=== PATIENT | male | born 1955 | race Caucasian/White ===

== ENCOUNTER 2019-08-13 08:09 | Day surgery (SDC) | payer OTHER ==
[~2019-08-13] VITALS: Ht 182.9 cm; Wt 123.0 kg
[~2019-08-13 08:09] MED LIST: ASPIR 8181 MG PO; ATOR20 PO; CARV3.125 PO; ENTRESTO 24 MG1 EACH PO; LISI5 PO; TORSE20 PO; TRAZ100 PO; VITAMIN D32000 UNI3 PO; WARF5 PO; XARELTO20 MG PO
--- NOTE | 2019-08-13 11:05 | NUR ---
PT TO RECOVERY ROOM POST PROCEDURE. PT IS DROWSY, BUT ROUSABLE, ANSWERING QUESTIONS APPROPRIATELY, DENIES PAIN POST PROCEDURE. MONITOR AFLUTTER 60-70'S, B/P 103/56, AFEBRILE, SPO2 99% 4L NC. L GROIN SITE NO SWELLING/HEMATOMA, 6 FR SHEATH REMAINS IN PLACE (ACT 230), TEGADERM DRSG INTACT; LLE PULSES DP 2+ AND PT 1+-UNCHANGED FROM PREASSESSMENT. PT TOOK SOME SIPS OF JUICE WITHOUT PROBLEM.
--- NOTE | 2019-08-13 12:35 | NUR ---
PRE-MEDICATIONS 600MG PLAVIX PO 325MG ASPIRIN PO @ 1230 GIVEN BY THIS NURSE PER PRE ORDERS
--- NOTE | 2019-08-13 13:05 | NUR ---
ACT 158, 6 FR SHEATH REMOVED, MANUAL PRESSURE X 20 MIN, BRADEN AND TEGADERM DRSG PLACED-DRAINAGE MAPPED. L GROIN SITE REMAINS WITHOUT SWELLINIG/HEMATOMA. DR BURGESS IN TO DISCUSS FINDINGS OF PROCEDURE.
--- NOTE | 2019-08-13 16:45 | NUR ---
PT STOOD AT THE BEDSIDE, VOIDED QS, ASSISTED BACK TO BED; SITE UNCHANGED WITH ACTIVITY.
--- NOTE | 2019-08-13 17:25 | NUR ---
PT AMB IN RECOVERY ROOM WITHOUT ISSUE, SITE UNCHANGED.
--- NOTE | 2019-08-13 17:35 | NUR ---
PT DRESSED SELF WITHOUT ISSUE, SITE UNCHANGED-IV REMOVED CANNULA INTACT. PT RECEIVED DISCHARGE INSTRUCTIONS, SITE MANAGEMENT, MED LIST AND AFTER CARE INSTRUCTIONS; VERBALIZED GOOD UNDERSTANDING.
--- NOTE | 2019-08-13 17:46 | NUR ---
PT LEFT FACILITY VIA W/C, CONDITION STABLE. PT IS GOING [place] FOR THE EVENING, DOES NOT HAVE ANYONE TO STAY THE NIGHT WITH HIM; DR BURGESS AWARE.
== END 2019-08-13 17:46 | disposition home or self-care (01) ==
LOC: MHTC 08:09
PROC: B201YZZ Plain Radiography of Multiple Coronary Arteries using Other Contrast (ICD-10-PCS; principal; 2019-08-13)
PROC: 4A023N7 Measurement of Cardiac Sampling and Pressure, Left Heart, Percutaneous Approach (ICD-10-PCS; principal; 2019-08-13)
DX: I25.10 Atherosclerotic heart disease of native coronary artery without angina pectoris (principal); I50.20 Unspecified systolic (congestive) heart failure
CPT/HCPCS: 76937; 85347; 93454; 93571; 99152; 99153; C1769; C1887; C1894; J1644; J2250; J3010; J7030; Q9967

== ENCOUNTER 2020-10-04 06:08 | Day surgery (SDC) | payer OTHER ==
[~2020-10-04] VITALS: Ht 182.9 cm; Wt 286.0 kg
[2020-10-04] MEDS ORDERED: Isosorbide Mono30 MG PO (07:22)
[2020-10-04] MEDS ORDERED: SIMV80 PO (07:23)
[2020-10-04] MEDS ORDERED: SPIR25 PO (07:25)
[2020-10-04] MEDS ORDERED: PANT40 PO (08:02)
[2020-10-04] MEDS ORDERED: PLAVIX75 MG PO (08:02)
--- NOTE | 2020-10-04 08:03 | NUR ---
PT AWAKE AND VERBALIZING WELL.
--- NOTE | 2020-10-04 08:53 | NUR ---
PT VERBALIZED UNDERSTANDING OF WRITTEN AND VERBAL D/C INST. IV REMOVED. PT TAKING PO FLUIDS /S DIFFICULTY. PT TAKEN OUT OF THE HRT CENTER VIA W/C.
== END 2020-10-04 23:03 | disposition home or self-care (01) ==
LOC: MHTC 06:08
DX: G45.9 Transient cerebral ischemic attack, unspecified (principal); I25.10 Atherosclerotic heart disease of native coronary artery without angina pectoris; I48.0 Paroxysmal atrial fibrillation; Z95.2 Presence of prosthetic heart valve; Z88.8 Allergy status to other drugs, medicaments and biological substances; Z79.01 Long term (current) use of anticoagulants; Z79.82 Long term (current) use of aspirin; Z79.899 Other long term (current) drug therapy; I12.9 Hypertensive chronic kidney disease with stage 1 through stage 4 chronic kidney disease, or unspecified chronic kidney disease; N18.9 Chronic kidney disease, unspecified; E78.5 Hyperlipidemia, unspecified
CPT/HCPCS: 93312; 93325; A9270; J2704; J7030

== ENCOUNTER 2020-10-10 15:10 | Inpatient (IN) | payer OTHER ==
[~2020-10-10] VITALS: Ht 182.9 cm; Wt 127.9 kg
[~2020-10-10 15:10] MED LIST changes: +Isosorbide Mono30 MG PO; +PANT40 PO; +PLAVIX75 MG PO; +SIMV80 PO; +SPIR25 PO
[2020-10-10 15:46] LABS: BASOPHILS ABSOLUTE AUTO 0.04 K/mm3 (0.00-0.23); BASOPHILS PERCENT AUTO 0 % (0-2); EOSINOPHILS ABSOLUTE AUTO 0.02 K/mm3 (0.00-0.68); EOSINOPHILS PERCENT AUTO 0 % (0-6); Hematocrit 51.6 % (37.0-53.0); Hemoglobin 17.5 g/dL (13.5-17.5); IMMATURE GRAN ABSOLUTE AUTO 0.31 K/mm3 (0.00-0.10); IMMATURE GRAN PERCENT AUTO 2 % (0-1); LYMPHOCYTES ABSOLUTE AUTO 1.29 K/mm3 (0.84-5.20); LYMPHOCYTES PERCENT AUTO 9 % (21-46); MONOCYTES ABSOLUTE AUTO 1.12 K/mm3 (0.16-1.47); MONOCYTES PERCENT AUTO 8 % (4-13); Mean Corpuscular HGB Conc 33.9 g/dL (31.5-36.5); Mean Corpuscular Volume 89 fL (80-100); Mean Platelet Volume 10.8 fL (9.1-12.4); NEUTROPHILS ABSOLUTE AUTO 12.15 K/mm3 (1.96-9.15); NEUTROPHILS PERCENT AUTO 81 % (41-73); Platelet Count 143 K/mm3 (150-400); RDW Coefficient Variation 14.7 % (11.7-14.2); RDW Standard Deviation 46.5 fL (35.1-46.3); Red Blood Cell Count 5.83 M/mm3 (4.30-5.90); White Blood Cell Count 14.93 K/mm3 (4.00-11.30)
[2020-10-10 16:08] LABS: Albumin, Blood 3.8 g/dL (3.4-5.0); Albumin/Globulin Ratio 0.8 (0.8-1.8); Bilirubin, Total 1.4 mg/dL (0.1-1.0); Bun/Creatinine Ratio 17.6 (12.0-20.0); Calcium, Blood 9.8 mg/dL (8.5-10.1); Creatinine, Blood 1.48 mg/dL (0.60-1.20); Globulin, Blood 4.6 g/dL (2.2-4.0); Potassium, Blood 4.4 mmol/L (3.5-5.5); Total Protein, Blood 8.4 g/dL (6.4-8.2)
[2020-10-10 18:28] LABS: International Normalized Ratio 1.05; Prothrombin Time Results 11.3 Sec (9.7-11.5)
[2020-10-11 03:48] LABS: Hematocrit 50.2 % (37.0-53.0); Hemoglobin 16.5 g/dL (13.5-17.5); Mean Corpuscular HGB 29.8 pg (26.0-34.0); Mean Corpuscular HGB Conc 32.9 g/dL (31.5-36.5); Mean Corpuscular Volume 91 fL (80-100); Mean Platelet Volume 10.8 fL (9.1-12.4); Platelet Count 126 K/mm3 (150-400); RDW Coefficient Variation 14.8 % (11.7-14.2); RDW Standard Deviation 48.6 fL (35.1-46.3); Red Blood Cell Count 5.54 M/mm3 (4.30-5.90); White Blood Cell Count 10.68 K/mm3 (4.00-11.30)
[2020-10-11 04:04] LABS: Bun/Creatinine Ratio 16.2 (12.0-20.0); Creatinine, Blood 1.48 mg/dL (0.60-1.20); Potassium, Blood 4.1 mmol/L (3.5-5.5)
--- NOTE | 2020-10-11 04:37 | NUR ---
SHIFT SUMMARY RECIEVED REPORT FROM PACO VASQUEZ, PT TO ROOM VIA STRETCHER @2006, 1 PERSON ASSIST TO THE BED. PATIENT IS ALERT AND ORIENTED X4 COOPERATIVE WITH CARE. GRAPHICS EDIT TECHNICIAN STRENGTH EQUAL, BLE STRENGTH EQUAL, FACE SYMMETRICAL. PT DOES HAVE SLURRED SPEECH AND STATES WHEN HE IS HAVING COORDINATION PROBLEMS AND WHEN HE STANDS HE FEEL LIKE HIS RIGHT SIDE IS WEAKER AND HARDER TO COORDINATE. NEURO UNCHANGED THROUGHOUT THE SHIFT. 02 SATS 93% ON RA. PT STATES HE HAS CPAP AT HOME BUT IS NON-COMPLIANT AND DOES NOT WANT TO WEAR IT. PATIENT SLEPT MOST THE NIGHT. VSS, NO ACUTE CHANGES. CALL LIGHT IN REACH.
--- NOTE | 2020-10-11 17:44 | NUR ---
SHIFT SUMMARY PT HAS BEEN PLEASANT & COOPERATIVE T/O SHIFT. UP IN CHAIR MOST OF SHIFT. NUERO CHECK'S UNCHANGED T/O SHIFT. WORKED W/ PT&OT. DENIES PAIN. EATING, DRINKING, VOIDING WELL.
--- NOTE | 2020-10-11 18:30 | NUR ---
PT TO MEDICAL FLOOR, BELONGINGS W/ PT.
--- NOTE | 2020-10-11 18:57 | NUR ---
PT ARRIVED TO ROOM 330 VIA W/C. WILL GIVE REPORT TO ONCOMING SHIFT.
[2020-10-12 06:37] LABS: Hematocrit 49.2 % (37.0-53.0); Hemoglobin 16.3 g/dL (13.5-17.5); Mean Corpuscular HGB 30.2 pg (26.0-34.0); Mean Corpuscular HGB Conc 33.1 g/dL (31.5-36.5); Mean Corpuscular Volume 91 fL (80-100); Mean Platelet Volume 10.8 fL (9.1-12.4); Platelet Count 115 K/mm3 (150-400); RDW Coefficient Variation 14.6 % (11.7-14.2); RDW Standard Deviation 48.1 fL (35.1-46.3); White Blood Cell Count 7.28 K/mm3 (4.00-11.30)
--- NOTE | 2020-10-12 06:48 | NUR ---
SEE PAPER PROGRESS NOTE FOR SHIFT SUMMARY
[2020-10-12 07:10] LABS: Bun/Creatinine Ratio 18.4 (12.0-20.0); Calcium, Blood 8.6 mg/dL (8.5-10.1); Creatinine, Blood 1.41 mg/dL (0.60-1.20); Potassium, Blood 4.1 mmol/L (3.5-5.5)
--- NOTE | 2020-10-12 13:31 | NUR ---
Echocardiogram using 9.0ml of agitated saline contrast and 0.60ml of Definity contrast performed.
[2020-10-12] MEDS ORDERED: ASPI81CH PO (14:25)
[2020-10-12] MEDS ORDERED: ATOR10 PO (14:25)
[2020-10-12] MEDS ORDERED: ENTRESTO 97 MG1 EACH PO (14:26)
[2020-10-12] MEDS ORDERED: METO25ER PO (14:26)
--- NOTE | 2020-10-12 16:10 | NUR ---
SHIFT SUMMARY PT WATCHING TV MOST OF DAY. CONTINUES TO SLUR WORDS AND AT TIMES TROUBLE WORD FINDING. ECHO COMPLETED TODAY. 1 PERSON ASSIST WITH AMBULATION. REPORTS BALANCE IMPROVING BUT STILL AN ISSUE. NO SWALLOWING CONCERNS. MED LIST CLARIFIED AND MD NOTIFIED.
--- NOTE | 2020-10-13 00:49 | NUR ---
ALERTED OF RECENT 7 BEAT RUN OF V.TACH W/PT REMAINING ASYMPTOMATIC OF CARDIAC DISTRESS AND VSS. NEW ORDERS RECIEVED FOR POTASSIUM AND MAG LEVELS IN AM. WCTM CLOSELY AND REPORT ANY CHANGES/WORSENING.
--- NOTE | 2020-10-13 05:26 | NUR ---
SUMMARY: PT A/OX4, CALLS APPROPRIATELY AND IS PLEASANT AND COOPERATIVE W/CARE. NEURO OBS STABLE AND DEFICITS CONT TO IMPROVE. HE REPORTS GAIT/COORDINATION IS BETTER AND IS UP INDEPENDENT W/FWW TO TOILET NOW. SPEECH CONT'S SLURRED AND GARBLED AT TIMES BUT THIS IS UNCHANGED FROM ONSET AND PT TO F/U W/SPEECH TX OUTPT. HE BEGAN SHIFT NSR W/1ST DEGREE BLOCK AT 90'S BPM BUT HAD A COUPLE EPISODES OF ECTOPIES REPORTED BY TELE TECHS THIS SHIFT. HE HAD A 7 BEAT RUN OF VTACH THEN RETURNED TO [facility], AWARE AND NEW ORDERS RECEIVED FOR MAG/POTASSIUM LEVELS THIS AM, LABS PENDING. HE ALSO BECAME TACHY W/HR UP TO 140'S W/EXERTION TO USE RESTROOM X1. HE RECOVERED AT REST AND REMAINED ASYMPTOMATIC OF CARDIAC DISTRESS DURING BOTH EPISODES. PT IS POSSIBLE D/C THIS AM W/HOME HEALTH. NO ACUTE CHANGES, VSS/AFEBRILE. WCTM AND REPORT TO DAY RN.
[2020-10-13 06:19] LABS: Magnesium, Blood 2.2 mg/dL (1.6-2.4); Potassium, Blood 4.1 mmol/L (3.5-5.5)
--- NOTE | 2020-10-13 19:43 | NUR ---
SHIFT SUMMARY: NO ACUTE EVENTS. NO EVENTS ON TELEMETRY, SR WITH PAC'S AND PVC'S IN THE 90'S. NEURO EXAM STABLE; POOR BALANCE, L HAND SLIGHTLY WEAKER THAN RIGHT, SPEECH SLURRED, SWALLOWS OK. ON HEPARIN GTT AT 15 UNITS/KG/HR BASED ON 98 KG WEIGHT, NO S/S BLEEDING NOTED. DENIES PAIN. DANGLES INDEPENDENTLY AT BEDSIDE, USES FWW AND GAIT BELT FOR AMBULATION. WORKED WITH PT/OT TODAY. HAS A FRIEND ALTAF HELPING HIM WITH HIS ANIMALS AND BILL PAYING WHILE HOSPITALIZED, BUT THIS IS STILL A SOURCE OF WORRY FOR HIM.
--- NOTE | 2020-10-13 20:23 | NUR ---
APRIL HELD PT INFORMED ME THAT THE HOSPITALIST MEANT TO DC XARELTO FOR NOW WHILE HE IS ON HEPARIN DRIP. I DID NOTE MENTION OF THIS INTENTION IN THE PHYSICIANS REPORT. APRIL IS HELD THIS SHIFT.
--- NOTE | 2020-10-14 04:05 | NUR ---
SHIFT SUMMARY ADMITEED FOR CEREBELLAR CVA. FULL CODE. APICAL THROMBUS FOUND. HEPARIN DRIP IN PLACE, RATE ADJUSTED ONCE THIS SHIFT. PLAN IS TO REDO ECHO IN 2 DAYS, THEN HOME W/HH. PT LIVES ALONE IN [place], BUT HAS A FRIEND HELPING HIM. NEURO CHECKS SHOW THE RIGHT SIDED WEAKNESS IN THE HANDS. PT STATES HE IS "WOBBLY ON MY FEET". HIS SPEECH IS SLURRED BUT HE IS UNDERSTANDABLE. TELEMETRY: NSR W/PVC'S @ 89 BPM, HE DID DIP DOWN INTO THE 50'S BPM BRIEFLY, BUT AVERAGED IN THE 90 BPM RANGE. I DID HOLD THE XARELTO TONIGHT, SEE PREVIOUS NOTE. FOLLOWING PTT LABS.
[2020-10-14 13:16] LABS: Mean Platelet Volume 10.9 fL (9.1-12.4); Platelet Count 157 K/mm3 (150-400)
--- NOTE | 2020-10-14 19:38 | NUR ---
SHIFT SUMMARY: NO ACUTE EVENTS. NO EVENTS ON TELEMETRY. DENIES PAIN. GETTING UP TO BR WITH 1 PERSON AND FWW, GAIT IS STILL UNSTEADY. SPEECH THERAPY CAME BY TO WORK ON SPEECH, GAVE VOCAL EXERCISES. HEPARIN GTT AT 17.5 UNITS/KG/HR (34.3 ML/HR), NO S/S OF BLEEDING. NO CHANGES IN NEURO EXAM. PT/OT ALSO WORKING WITH PATIENT. HAD VISIT FROM HIS FRIEND ALTAF TODAY, IS EAGER TO GO HOME.
[2020-10-15 02:38] LABS: Hematocrit 48.5 % (37.0-53.0); Hemoglobin 16.5 g/dL (13.5-17.5); Mean Corpuscular HGB 30.2 pg (26.0-34.0); Mean Corpuscular Volume 89 fL (80-100); Mean Platelet Volume 10.9 fL (9.1-12.4); Platelet Count 140 K/mm3 (150-400); RDW Coefficient Variation 14.3 % (11.7-14.2); RDW Standard Deviation 45.4 fL (35.1-46.3); Red Blood Cell Count 5.47 M/mm3 (4.30-5.90); White Blood Cell Count 9.09 K/mm3 (4.00-11.30)
[2020-10-15 02:52] LABS: Bun/Creatinine Ratio 17.1 (12.0-20.0); Calcium, Blood 8.9 mg/dL (8.5-10.1); Creatinine, Blood 1.7 mg/dL (0.60-1.20); Potassium, Blood 3.9 mmol/L (3.5-5.5)
--- NOTE | 2020-10-15 03:53 | NUR ---
SHIFT SUMMARY ADMITTED FOR CVA. FULL CODE. RIGHT SIDED WEAKNESS. PLAN IS FOR 2 DAYS HEPARIN DRIP, THEN CHECK APICAL THROMBUS W/REPEAT ECHO. ON DC IT WILL BE W/HH & RESTART XARELTO. HEPARIN INFUSING ORDERED. PTT IS AT GOAL AT 60.1. TELEMETRY: NSR W/1ST DEG BLOCK @ 90 BPM. RT HAND SEEMS STRONGER THIS SHIFT
--- NOTE | 2020-10-15 17:42 | NUR ---
PATIENT IS ALERT AND ORIENTED AND COOPERATIVE WITH CARE. WORKED WITH ST TODAY, ST WANTS THE PATIENT TO WORK ON SPEAKING SLOWLY AND ENUNCIATE. WORKED WITH PT AND OT TODAY. HEPARRIN DRIP IS RUNNING. CT SCAN IS ORDERED. PATIENT CALLS APPROPRIATELY. NO C/O PAIN. WILL CONTINUE TO MONITOR
--- NOTE | 2020-10-15 20:00 | NUR ---
IV RAC 20G WITH HEPARIN GTT RUNNING, IV SITE IS WNL AND INFUSING WELL.
--- NOTE | 2020-10-16 00:05 | NUR ---
10/15/201958 PT SITTING UP IN BED, DENIES ANY DISCOMFORT AT THIS TIME. TELE 1ST DEGREE BLOCK. NO OTHER APPARENT SIGNS OF DISTRESS. CALL LIGHT IS IN REACH.
[2020-10-16 00:24] LABS: Hemoglobin 16.1 g/dL (13.5-17.5); Mean Corpuscular HGB 29.9 pg (26.0-34.0); Mean Corpuscular HGB Conc 32.9 g/dL (31.5-36.5); Mean Corpuscular Volume 91 fL (80-100); Mean Platelet Volume 10.8 fL (9.1-12.4); Platelet Count 143 K/mm3 (150-400); RDW Coefficient Variation 14.4 % (11.7-14.2); RDW Standard Deviation 47.3 fL (35.1-46.3); Red Blood Cell Count 5.39 M/mm3 (4.30-5.90); White Blood Cell Count 8.38 K/mm3 (4.00-11.30)
--- NOTE | 2020-10-16 00:36 | NUR ---
PT LYING IN BED, EYES CLOSED, WAKES EASILY TO VERBAL STIMULI. NO APPARENT SIGNS OF DISTRESS. CALL LIGHT IS IN REACH.
--- NOTE | 2020-10-16 00:36 | NUR ---
10/15/20 2200 PT LYING IN BED, EYES CLOSED, APPEARS TO BE RESTING. BREATHING IS EVEN, UNLABORED. NO APPARENT SIGNS OF DISTRESS. CALL LIGHT IS IN REACH.
[2020-10-16 00:41] LABS: Bun/Creatinine Ratio 16.7 (12.0-20.0); Calcium, Blood 8.6 mg/dL (8.5-10.1); Creatinine, Blood 1.56 mg/dL (0.60-1.20); Potassium, Blood 4.2 mmol/L (3.5-5.5)
--- NOTE | 2020-10-16 03:00 | NUR ---
0200 PT LYING IN BED EYES CLOSED, APPEARS TO BE RESTING. BREATHING IS EVEN, UNLABORED. NO APPARENT SIGNS OF DISTRESS. CALL LIGHT IS IN REACH.
--- NOTE | 2020-10-16 05:02 | NUR ---
0400 PT LYING IN BED, EYES CLOSED, WAKES EASILY TO VERBAL STIMULI. NO APPARENT SIGNS OF DISTRESS. CALL LIGHT IS IN REACH.
--- NOTE | 2020-10-16 05:03 | NUR ---
PT IS AAO X 4, ON RA. DENIED ANY DISCOMFORT FOR THIS SHIFT. PT HAS SLIGHTLY SLURRED SPEECH AND IS APHASIC AT TIMES. PT HAD EPISODE OF AFLUTTER AND EPISODE OF SB. BOTH WERE VERY SHORT INTERVALS WITH PT BEING ASYMPTOMATIC. TELE SHOWS 1ST DEGREE BLOCK.
--- NOTE | 2020-10-16 05:05 | NUR ---
PT LYING IN BED, EYES CLOSED, APPEARS TO BE RESTING. BREATHING IS EVEN, UNLABORED. NO APPARENT SIGNS OF DISTRESS. CALL LIGHT IS IN REACH. NO OTHER CHANGES THIS SHIFT.
--- NOTE | 2020-10-17 05:00 | NUR ---
RADIO ADJUSTER NOTIFIED RN OF POSSIBLE V.TACH VS ABERRANT BEATS AT 63 BPM THEN SPONTANEOUS RETURN TO A.FLUTTER AT 73 BPM. ALERTED AND LABS RX'D THIS AM: CBC, CMP, BNP. PT ASYMPTOMATIC OF DISTRESS, SLEEPING AT THE TIME AND AWOKE TO DENY ALL CARDIAC COMPLAINTS. VSS/AFEBRILE. WCTM CLOSELY FOR CHANGES.
--- NOTE | 2020-10-17 05:17 | NUR ---
SUMMARY: PT A/OX4, CALLS APPROPRIATELY TO SPECIFY NEEDS AND IS PLEASANT AND COOPERATIVE W/CARE. HE CONT'S TO REPORT MILD DIZZINESS, SOB AND BALANACE ISSUES W/AMBULATION BUT NO CHANGES/WORSENING TO NEURO OBS. PT C/O PERISTANT SLURRED SPEECH AND SLIGHT WEAKNESS TO R.HAND BUT STRENGTH CONT'S TO IMPROVE. HE'S UP W/FWW TO TOILET AND IS AWARE OF LIMITATIONS. HE'S BEEN AFLUTTER ON TELEMETRY THIS SHIFT BUT HAD X1 POSS EPISODE V.TACH VS ABBERANT BEATS. PT WAS ASYMPTOMATIC OF CARDIAC DISTRESS, SLEPT T/O EVENT AND VITALS REMAINED STABLE. MADE AWARE W/AM LABS RX'D, STILL PENDING AT THIS TIME. HE'S ON XARELTO FOR APICAL THROMBUS AND CONT'S W/O S/S BLEEDING. NO ACUTE CHANGES, VSS/AFEBRILE. PT HYPOTENSIVE AT TIMES W/O S/S DISTRESS. WCTM/REPORT TO DAY RN.
[2020-10-17 05:53] LABS: BASOPHILS ABSOLUTE AUTO 0.07 K/mm3 (0.00-0.23); BASOPHILS PERCENT AUTO 1 % (0-2); EOSINOPHILS ABSOLUTE AUTO 0.17 K/mm3 (0.00-0.68); EOSINOPHILS PERCENT AUTO 2 % (0-6); Hematocrit 50.6 % (37.0-53.0); Hemoglobin 17.1 g/dL (13.5-17.5); IMMATURE GRAN ABSOLUTE AUTO 0.22 K/mm3 (0.00-0.10); IMMATURE GRAN PERCENT AUTO 3 % (0-1); LYMPHOCYTES ABSOLUTE AUTO 1.45 K/mm3 (0.84-5.20); LYMPHOCYTES PERCENT AUTO 18 % (21-46); MONOCYTES ABSOLUTE AUTO 0.85 K/mm3 (0.16-1.47); MONOCYTES PERCENT AUTO 11 % (4-13); Mean Corpuscular HGB 30.3 pg (26.0-34.0); Mean Corpuscular HGB Conc 33.8 g/dL (31.5-36.5); Mean Corpuscular Volume 90 fL (80-100); Mean Platelet Volume 10.5 fL (9.1-12.4); NEUTROPHILS PERCENT AUTO 65 % (41-73); Platelet Count 148 K/mm3 (150-400); RDW Coefficient Variation 14.4 % (11.7-14.2); RDW Standard Deviation 46.5 fL (35.1-46.3); Red Blood Cell Count 5.64 M/mm3 (4.30-5.90); White Blood Cell Count 7.96 K/mm3 (4.00-11.30)
[2020-10-17 06:15] LABS: Albumin, Blood 3.4 g/dL (3.4-5.0); Albumin/Globulin Ratio 0.8 (0.8-1.8); Bilirubin, Total 1.3 mg/dL (0.1-1.0); Bun/Creatinine Ratio 18.6 (12.0-20.0); Calcium, Blood 8.9 mg/dL (8.5-10.1); Creatinine, Blood 1.56 mg/dL (0.60-1.20); Globulin, Blood 4.4 g/dL (2.2-4.0); Potassium, Blood 4.2 mmol/L (3.5-5.5); Total Protein, Blood 7.8 g/dL (6.4-8.2)
--- NOTE | 2020-10-17 17:45 | NUR ---
SHIFT SUMMARY PT AXO, PLEASANT AND COOPERATIVE WITH CARE. VSS THOUGH LOW BP OF 97/61 NOTED AT 1456. NO ACUTE CHANGES THIS SHIFT. PT AMBULATES WITH SBA AND FWW THOUGH REFUSES GB. IV PATENT AND SALINE LOCKED. PT DENIES SOB, PAIN AND NV. THIS NURSE AMBULATED WITH PATIENT IN HALLWAY. PT STATES THAT HE STILL FEELS SLIGHTLY DIZZY BUT OKAY WHILE AMBULATING. BED IN LOW POSITION, CALL LIGHT WITHIN REACH.
--- NOTE | 2020-10-18 04:45 | NUR ---
SHIFT SUMMARY NO ACUTE CHANGES TO REPORT THIS SHIFT. PT HAS RESTED MOST OF THE NIGHT. PT STILL STRUGGLING WITH EXPRESSIVE APHASIA AND SLURRING OF WORDS BUT WHEN GIVEN TIME HE IS ABLE TO COMMUNICATE AND EXPRESS HIS NEEDS. PT A/OX4, NO ACUTE NEURO CHANGES. PLAN AT THIS POINT IS SNF. VITALS ARE STABLE. PT AMBULATES WELL WITH 1 PA AND FWW. BED IN LOWEST POSITION, CALL LIGHT WITHIN REACH.
--- NOTE | 2020-10-18 16:57 | NUR ---
SHIFT SUMMARY PT AxOx4. PLEASANT AND COOPERATIVE WITH CARE. PT WORKED WITH PHYSICAL AND OCCUPATIONAL THERAPY TODAY- 1 ASSIST WITH FWW AND GB. PT ON TELE, RUNNING AFIB AT 96. CURRENT PLAN WAS TO DC TO IRU AT [facility] TODAY. RING SEWER WORKING ON DETAILS. VITALS REVIEWED. PT DENIES ANY NEEDS AT THIS TIME AND CURRENTLY RESTING IN BED WITH CALL LIGHT IN REACH.
--- NOTE | 2020-10-19 04:06 | NUR ---
SHIFT SUMMARY A/O, ABLE TO MAKE NEEDS KNOWN. COOPERATIVE WITH CARE. ANSWERS QUESTIONS APPROPRIATELY. DIFFICULTY FORMING THOUGHTS INTO SENTENCES AT TIMES. NO PAIN/DISCOMFORT. APPEARED TO REST MUCH OF THE NIGHT. UP /c 1P ASSIST /c FWW. TELE RUNNING AFLUTTER @ 60. NO ACUTE CHANGES NOTED OVERNIGHT. BED REMAINS IN LOWEST POSITION. CALL LIGHT AND BELONGINGS WITHIN REACH. CONTINUE WITH CURRENT PLAN OF CARE. REPORT TO ONCOMING RN.
--- NOTE | 2020-10-19 16:48 | NUR ---
PATIENT HAS BEEN PLEASANT AND COOPERATIVE WITH STAFF. VITALS HAVE BEEN STABLE AND WNL. IV FLUIDS STARTED FOR ORTHOSTATIC HYPOTENSION. PATIENT HAS DENIED PAIN AND DISCOMFORT. INDEPENDENT IN ROOM. CALLS APPROPRIATELY FOR STAFF ASSIST NEEDED. CALL LIGHT IS WITHIN REACH.
--- NOTE | 2020-10-19 19:05 | NUR ---
ASSUMED CARE RECEIVED REPORT FROM CHRISTINA MARTÍNEZ. PT RESTING, IN NAD. CHARACTER ACTOR ASSISTING PT TO BATHROOM. NO OTHER ACUTE NEEDS ASSESSED AT THIS TIME. CALL LIGHT, POSSESSIONS IN REACH, BED IN LOW AND LOCKED POSITION.
[2020-10-20 06:07] LABS: Bun/Creatinine Ratio 22.4 (12.0-20.0); Calcium, Blood 8.7 mg/dL (8.5-10.1); Creatinine, Blood 1.52 mg/dL (0.60-1.20); Potassium, Blood 4.2 mmol/L (3.5-5.5)
--- NOTE | 2020-10-20 07:23 | NUR ---
SUPERVISOR FINISHING SUMMARY PT RESTING, IN NAD. APPEARED TO SLEEP WELL T/O NIGHT. NO ACUTE CONCERNS TO REPORT, VS REVIEWED,WNL. NO ACUTE NEEDS ASSESSED AT THIS TIME. CALL LIGHT, POSSESSIONS IN REACH, BED IN LOW AND LOCKED POSITION. REPORT GIVEN TO CHRISTINA MARTÍNEZ.
--- NOTE | 2020-10-20 16:52 | NUR ---
PATIENT HAS BEEN PLEASANT AND COOPERATIVE WITH STAFF. VITALS REMAIN STABLE. ORTHOSTATIC BP's RE-CHECKED TODAY PER MD AND WERE NEGATIVE. PATIENT WITHOUT ANY ACUTE CHANGES TO REPORT OF AT THIS TIME. STILL AWAITING PLACEMENT AT AN IRU. CALL LIGHT WITHIN REACH.
--- NOTE | 2020-10-21 05:10 | NUR ---
PHOTOGRAPHERS' MODEL SUMMARY NO ACUTE CHANGES. PT AAOX4 AND PLEASANT. STANDBY ASSIST W/ FWW WHEN AMBULATING. PT FAIRLY STEADY ON FEET. NO NOTABLE DEFICITS NOTED DURING NEURO CHECK. PT DENIES PAIN, SOB, N/V. VSS, WILL CONTINUE TO MONITOR.
[2020-10-21] MEDS ORDERED: ENTRESTO 24 MG1 EACH PO (11:17)
[2020-10-21] MEDS ORDERED: TORSE20 PO (11:18)
[2020-10-21] MEDS ORDERED: THERA-D2000 UNIT PO (11:18)
[2020-10-21 13:02] LABS: SARS-Cov-2 (COVID-19) PCR, MMC NEGATIVE (NEGATIVE)
--- NOTE | 2020-10-21 17:38 | NUR ---
SHIFT SUMMARY NO ACUTE CHANGES THIS SHIFT. PATIENT IS ALERT AND ORIENTATED X4. PATIENT IS PLEASANT AND COOPERATIVE WITH CARE. PATIENT IS A ONE PERSON ASSIST WITH FWW. PATIENT DENIES PAIN, NAUSEA, SOB. VITAL SIGNS REVIEWED. PATIENT HAS HAD NEEDS MET WITH APPROPRIATE CALL LIGHT USE. CALL LIGHT IN REACH AND BED IS IN LOCKED AND LOWEST POSITION. WILL CONTINUE TO MONITOR UNTIL SHIFT CHANGE.
--- NOTE | 2020-10-22 04:47 | NUR ---
SUMMARY PT HAD NO NEW ISSUES NOTED. PT WENT TO BED EARLY AND HAS BEEN SLEEPING SOUNDLY. PT CURRENTLY SLEEPING IN NO DISTRESS. CALL LIGHT IN REACH.
--- NOTE | 2020-10-22 15:06 | NUR ---
DISCHARGE SUMMARY PATIENT ALERT AND ORIENTATED. PATIENTS SPEECH AND DIZZINESS IMPROVED DURING STAY. IV REMOVED PRIOR TO DISCHARGE PATIENT BELONGINGS WITH PATIENT UPON DISCHARGE. PATIENT DISCHARGED VIA WHEELCHAIR TO REHAB VEHICLE. REHAB FACILITY CALLED FOR REPORT ON PATIENT.
== END 2020-10-22 14:20 | DRG 65 ==
LOC: ER 15:10 → PCU 19:08 → MEDS 10-11 18:30 → ENPENDDIS 10-22 14:23
PROVIDERS: Family Medicine; Internal Medicine; Pharmacist; Physician Assistant; Student in an Organized Health Care Education/Training Program; ADMIT Internal Medicine
DX: I63.9 Cerebral infarction, unspecified (principal); G81.91 Hemiplegia, unspecified affecting right dominant side; N17.9 Acute kidney failure, unspecified; I50.42 Chronic combined systolic (congestive) and diastolic (congestive) heart failure; I13.0 Hypertensive heart and chronic kidney disease with heart failure and stage 1 through stage 4 chronic kidney disease, or unspecified chronic kidney disease; R47.81 Slurred speech; Z20.822 Contact with and (suspected) exposure to COVID-19; N18.30 Chronic kidney disease, stage 3 unspecified; I51.3 Intracardiac thrombosis, not elsewhere classified; I95.1 Orthostatic hypotension; Z98.890 Other specified postprocedural states; Z87.891 Personal history of nicotine dependence; Z88.8 Allergy status to other drugs, medicaments and biological substances; Z79.01 Long term (current) use of anticoagulants; Z79.899 Other long term (current) drug therapy
CPT/HCPCS: 36415; 70450; 70496; 80048; 80053; 83735; 83880; 84132; 85025; 85027; 85049; 85610; 85730; 92507; 92526; 92610; 93005; 93010; 97110; 97112; 97116; 97129; 97162; 97166; 97530; 97535; 99285-25; A9270; C8929; J1644; J7030; Q9957; Q9967; U0004